=== PATIENT | female | born 1945 | race Caucasian/White ===

== ENCOUNTER → 2016-07-18 | Outpatient (CLI) | payer OTHER ==
[~2016-07-18] MED LIST: LIPITOR20 MG PO; XANAX 0.5 MG0.5 M1 PO
== END ==
LOC: RAD 11:03
DX: Z12.31 Encounter for screening mammogram for malignant neoplasm of breast (principal)

== ENCOUNTER → 2017-01-30 | Outpatient (CLI) | payer OTHER ==
[~2017-01-30] VITALS: Ht 157.5 cm; Wt 63.5 kg
[~2017-01-30] MED LIST changes: +CELEXA20 MG PO; +HYDROXYZINE HCL25 M1 PO; +NORVASC5 MG PO; +SIMVASTATIN20 MG PO; +VITAMIN D3400 UNIT PO
--- NOTE | ~2017-01-30 | CATHLAB ---
[facility] [address] [place] [address] INVASIVE PROCEDURE REPORT Name: ADEOLAYUE Room #: REG Aleksandr#: [id number] Admission: 01/30/17 Attend Phys: Narendra Hammond Discharge: Date of : 45 Date of Service: 02/03/17 0849 Report #: [id number] THIS REPORT FOR: //name// APPROVED REPORT Patient Details Patient Status: Out-Patient Room #: The patient is a 71 year-old female Event Personnel Narendra Church Religious Studies Professor, Marques Anton RN, Judie Richmond Sandifer, David Monitor Procedures Performed Left Heart Cath w/or w/o Coronaries [id number] [facility], supervision of conscious sedation Indication Positive stress test Procedure Narrative The Right Groin^ was infiltrated with 1% Lidocaine subcutaneous anesthesia. A PINNACLE 4FR Sheath #[id number] sheath was inserted into the RFA^. Coronary angiography was performed using coronary diagnostic catheters. The right coronary system was accessed and visualized with a JR4 catheter. The left coronary system was accessed and visualized with a JL4 catheter. The left ventricle was accessed and visualized with a PIGTAIL catheter. Left ventricular/Aortic Valve gradient assessed via catheter pullback. Hemostasis was obtained with manual pressure following sheath removal without any complications. The patient tolerated the procedure well and there were no complications associated with the procedure. There was no hematoma. Intraoperative Conscious Sedation Sedation start time: 11.03 Case end Time: 11.12 Versed 2.0 mg Fluoro Time: 1.53 minutes Dose: 228 mGy Contrast Type and Amount: Omnipaque 50 ml Coronary Angiography The patient's coronary anatomy is right dominant. [facility] [address] [place] [address] INVASIVE PROCEDURE REPORT Name: YUE MIR Room #: REG Aleksandr#: [id number] Admission: 01/30/17 Attend Phys: Narendra Hammond Discharge: Date of : 45 Date of Service: 02/03/17 0849 Report #: [id number] Diagnostic Cath Left Main Normal origin and caliber bifurcates that anterior descending left circumflex free of high-grade disease LAD Moderate caliber type II vessel which courses in the anterior interventricular sulcus. At the site of the first diagonal origin the LAD proper has an eccentric 50% lesion which is not appear to be flow-limiting. Then continues on with luminal irregularities and terminates near the left ventricular apex Diagonal 1 Moderate caliber vessel without significant obstructive lesions noted only luminal irregularities. Circumflex Small to moderate caliber vessel giving rise to marginal branches free of high-grade disease OM1 Small-caliber vessel without significant obstructive lesions OM2 Small-caliber vessel without significant obstructive lesion Right Coronary Moderate caliber vessel of normal origin and courses in the AV groove giving rise to RV marginal branches free of high-grade disease. This luminal irregularities noted in the proximal RCA but no obstructive lesions are seen. It then continues Moceri giving rise to posterior descending artery and posterior wall circulation free of significant high-grade lesions R PDA Small-caliber vessel free of significant obstructive lesions Left Ventriculography Left Ventriculography was not performed. Hemodynamics The aortic pressure is 172/88 mmHg with a mean of 114 mmHg. The left ventricular pressure is 150/11 mmHg with a mean of mmHg. The left ventricular end diastolic pressure is 26 mmHg. There was no gradient across the aortic valve upon pullback. Pullback from the left ventricle to the aorta revealed no gradient across the aortic valve. Conclusion 1. Coronary disease, moderate, single vessel involving the proximal mid LAD 2. Normal hemodynamics Recommendations [facility] [address] [place] [address] INVASIVE PROCEDURE REPORT Name: YUE MIR Room #: REG [facility]#: [id number] Admission: 01/30/17 Attend Phys: Narendra Hammond Discharge: Date of : 45 Date of Service: 02/03/1749 Report #: [id number] Cardiac Risk Reduction Program Aggressive Medical Therapy <ELECTRONICALLY SIGNED> By: Narendra Church MD 02/03/17 0849 0849 0849 Narendra Church MD /INF
[2017-01-30 10:15] LABS: HEMATOCRIT 42.3 % (37.0-47.0); HEMOGLOBIN 14.2 gm/dL (12.0-15.0); MCH 29.1 pg (26.0-34.0); MCHC 33.6 g/dL (28.0-37.0); MCV 86.8 fL (80.0-100.0); RBC 4.88 mil/uL (4.20-5.00); WBC 4.7 thou/uL (4.0-11.0)
[2017-01-30 10:17] VITALS: BP 123/80
[2017-01-30 10:21] LABS: CALCIUM 9.1 mg/dL (8.5-10.1); CREATININE 0.7 mg/dL (0.6-1.0); POTASSIUM 3.9 mmol/L (3.5-5.1)
== END | disposition home or self-care (01) ==
LOC: CATH 07:17
PROVIDERS: Internal Medicine
DX: I25.10 Atherosclerotic heart disease of native coronary artery without angina pectoris (principal); E78.00 Pure hypercholesterolemia, unspecified; Z90.49 Acquired absence of other specified parts of digestive tract; Z98.890 Other specified postprocedural states; Z79.899 Other long term (current) drug therapy; Z82.49 Family history of ischemic heart disease and other diseases of the circulatory system

== ENCOUNTER → 2017-12-11 | Outpatient (CLI) | payer OTHER | LOC: RAD 10:12 | DX: Z12.31 Encounter for screening mammogram for malignant neoplasm of breast (principal) ==